=== PATIENT | female | born 1990 | race Two or more races ===

== ENCOUNTER 2020-10-07 10:47 | Inpatient (IN) | payer MEDICAID ==
[2020-10-07] MEDS ORDERED: MISOPROSTOL 0.2 MG TABLET ONE ×2 (11:15→16:35)
[2020-10-07] MEDS ORDERED: OXYTOCIN/0.9 % SODIUM CHLORIDE 30 UNIT/500 ML RTUINJ ONE (11:15)
[2020-10-07] MEDS ORDERED: LIDOCAINE 1% INJ-PF (10 MG/ML) 30 ML SDV ONE (11:15)
[2020-10-07] MEDS ORDERED: OXYTOCIN 10 UNIT/ML VIAL ONE (11:15)
[2020-10-07] MEDS ORDERED: PENICILLIN G-K 5 MILLION UNIT VIAL ONE (11:22)
--- NOTE | 2020-10-07 11:22 | Admission Physical ---
Datetime Report Generated by CPN: 10/07/2020 11:22 CURRENT ADMISSION Chief Complaint: Uterine Contractions Admit Impression : Term, Intrauterine ; Active Labor Admit Plan: Admit to Unit; Initiate Labor Protocol ALLERGIES Medication Allergies: No Medication Allergies: No Known Allergies (10/07/2020) Latex: No Latex Allergies OBSTETRICAL HISTORY EDC: 10/17/2020 00:00 : 5 Para: 3 Term: 3 : 0 SAB: 1 IAB: 0 Livin Cesareans: 0 VBACs: 0 PHYSICAL EXAM General: Normal HEENT: Normal Neurologic: Normal Thyroid: Normal Heart: Normal Lungs: Normal Breast: Normal Back: Normal Abdomen: Normal Genitourinary Exam: Normal Extremities: Normal DTRs: Normal Pelvic Type: Adequate Vital Signs: Reviewed VAGINAL EXAM Dilatation: 8-9 Effacement: 100 Station: -2 MEMBRANES Membranes: Bulging FETUS A EGA: 38.4 Monitoring: External US FHR- Baseline: 140 Variability: Moderate 6-25bpm Accelerations: 15X15 Decelerations: None FHR Category: Category I Admit Comment: presents c/o increasing contractions.38 wks, PNC at [facility] in [place]. No records available at admission. GBS unknown. VE stretchy 8-9/100/-2, vtx on Leapolds. Dr Wilson notified of pts status. Will admit in active labor. Will give PCN prophylactaly since GBS is unknown. records requested INFORMED CONSENT Assignment: Ruth Wilson MD Signature: with User ID: [email or web address] : with User ID: [email or web address]
[2020-10-07] MEDS ORDERED: PENICILLIN G POTASSIUM 5,000,000 UNIT in DEXTROSE 5%-WATER 100 ML IV ONE (11:27)
[2020-10-07] MEDS ORDERED: RINGERS SOLUTION,LACTATED 1,000 ML IV ONE (11:27)
[2020-10-07] MEDS ORDERED: RINGERS SOLUTION,LACTATED 500 ML IV ONE (11:27)
[2020-10-07 11:31] LABS: APPEARANCE,URINE CLEAR; BILIRUBIN,URINE NEGATIVE (NEGATIVE); COLOR,URINE STRAW; GLUCOSE, URINE NEGATIVE (NEGATIVE); KETONES,URINE NEGATIVE (NEGATIVE); LEUKOCYTE ESTERASE,URINE SMALL (NEGATIVE); NITRITE,URINE NEGATIVE (NEGATIVE); PROTEIN,URINE NEGATIVE (NEGATIVE); UROBILINOGEN,URINE NEGATIVE mg/dL (<2.0)
[2020-10-07] MEDS ORDERED: DIPHENHYDRAMINE HCL 25 MG CAPSULE PO PRN (11:44)
[2020-10-07] MEDS ORDERED: ACETAMINOPHEN 650 MG SUPP.RECT PR PRN (11:44)
[2020-10-07] MEDS ORDERED: VARICELLA VACC/PF (1350 UNIT/0.5 ML) 0.5 ML VIAL SUBCUT PRN (11:44)
[2020-10-07] MEDS ORDERED: ACETAMINOPHEN 325 MG TABLET PO PRN (11:44)
[2020-10-07] MEDS ORDERED: PSEUDOEPHEDRINE HCL 30 MG TABLET PO PRN (11:44)
[2020-10-07] MEDS ORDERED: OXYTOCIN/0.9 % SODIUM CHLORIDE 30 UNIT/500 ML RTUINJ IV PRN (11:44)
[2020-10-07] MEDS ORDERED: ZOLPIDEM TARTRATE 5 MG TABLET PO PRN (11:44)
[2020-10-07] MEDS ORDERED: FAMOTIDINE 20 MG TABLET PO PRN (11:44)
[2020-10-07] MEDS ORDERED: MEASLES,MUMPS&RUBELLA VACC/PF 0.5 ML VIAL SUBCUT PRN (11:44)
[2020-10-07] MEDS ORDERED: MAG HYDROX/AL HYDROX/SIMETH SUSP 30 ML UDCUP PO PRN (11:44)
[2020-10-07] MEDS ORDERED: ACETAMINOPHEN WITH CODEINE #3 TABLET PO PRN ×2 (11:44)
[2020-10-07] MEDS ORDERED: BENZOCAINE/MENTHOL AEROSOL SPRAY 56 ML TOP PRN (11:44)
[2020-10-07] MEDS ORDERED: MAGNESIUM HYDROXIDE SUSP 30 ML UDCUP PO PRN (11:44)
[2020-10-07] MEDS ORDERED: GLYCERIN/WITCH HAZEL LEAF 1 EACH MED..WIPE TP PRN (11:44)
[2020-10-07] MEDS ORDERED: DIBUCAINE 1% OINTMENT 28 GM TP PRN (11:44)
[2020-10-07] MEDS ORDERED: DIPH/PERTUSS(ACELL)/TETANUS VAC/PF 0.5 ML SYR (>=10YO) IM PRN (11:44)
[2020-10-07 11:52] LABS: URINE AMPHETAMINES SCREEN NEGATIVE; URINE BARBITURATES SCREEN NEGATIVE; URINE BENZODIAZEPINES SCREEN NEGATIVE; URINE COCAINE SCREEN NEGATIVE; URINE MARIJUANA (THC) SCREEN NEGATIVE; URINE METHADONE SCREEN NEGATIVE; URINE PHENCYCLIDINE SCREEN NEGATIVE
[2020-10-07 12:32] LABS: ABSOLUTE LYMPHOCYTES (AUTO) 1.7 10^3/uL (0.5-4.7); ABSOLUTE MONOCYTES (AUTO) 0.6 10^3/uL (0.1-1.4); ABSOLUTE NEUT (AUTO) 9.3 10^3/uL (1.7-8.2); BASOPHILS % (AUTO) 0.3 % (0-2); EOSINOPHILS % (AUTO) 0.4 % (0-6); HEMATOCRIT 34.1 % (36.0-47.0); HEMOGLOBIN 11.4 g/dL (12.0-15.5); LYMPHOCYTES % (AUTO) 14.4 % (13-45); MEAN CORPUSCULAR HEMOGLOBIN 28.4 pg (27.0-33.4); MEAN CORPUSCULAR HGB CONC 33.5 g/dL (32.0-36.0); MEAN CORPUSCULAR VOLUME 85 fl (80-97); MONOCYTES % (AUTO) 4.9 % (3-13); PLATELET COUNT 269 10^3/uL (150-450); RED BLOOD COUNT 4.02 10^6/uL (3.72-5.28); RED CELL DISTRIBUTION WIDTH 14.8 % (11.5-14.0); TOTAL CELLS COUNTED % (AUTO) 100 %; WHITE BLOOD COUNT 11.6 10^3/uL (4.0-10.5)
[2020-10-07 13:30] LABS: CHLAM PCR NOT DETECTED (NOT DETECT)
--- NOTE | 2020-10-07 13:54 | Birth Certificate Data ---
Cert Data Datetime Report Generated by CPN: 10/07/2020 13:54 CERTIFICATE DATA 47a. Care: No (10/07/2020 10:52:Willow Pascual RN) 47d. Number of Visits: Unknown (10/07/2020 10:52:Willow Pascual RN) 48a. Number of Prev Live Births: 3 (10/07/2020 10:52:Willow Pascual RN) 48b. Now Livin (10/07/2020 10:52:Willow Pascual RN) 48c. Live Births Now : 0 (10/07/2020 10:52: system process) 48e. Losses: 1 (10/07/2020 10:52:Willow Pascual RN) 48f. Date of Last Preg Loss: 09/22/2019 00:00 (10/07/2020 10:52:Willow Pascual RN) RISK FACTORS IN THIS 49a. Diabetes: No (10/07/2020 10:52:Willow Pascual RN) 49b. Hypertension: No (10/07/2020 10:52:Willow Pascual RN) 49c. Previous Births: 0 (10/07/2020 10:52:Willow Pascual RN) 49d. Stillborns: No (10/07/2020 10:52:Willow Pascual RN) 49d. IUGR: No (10/07/2020 10:52:Willow Pascual RN) 49e. Infertility Treatment: No (10/07/2020 10:52:Willow Pascual RN) 49f. Previous Cesareans: 0 (10/07/2020 10:52:Carmelita Crespo RN) Mother's Height 50b. Height Inches: 62 (10/07/2020 12:02:QS system process) Mother's Weight 51a. Pre- Weight (lbs): 212 (10/07/2020 10:52:Willow aPscual RN) 51b. Weight at Delivery (lbs): 255 (10/07/2020 12:02:QS system process) Infections Present/Treated 53a. Gonorrhea: No (10/07/2020 10:52:Willow Pascual RN) 53b. Syphilis: No (10/07/2020 10:52:Willow Pascual RN) 53c. Chlamydia: No (10/07/2020 10:52:Willow Pascual RN) 53d. Hepatitis B: No (10/07/2020 10:52:Willow Pascual RN) Results this Hospital Visit: Negative (10/07/2020 10:52:Willow Pascual RN) 53j. Test Result: Negative (10/07/2020 10:52:Willow Pascual RN) Obstetric Procedures 54a, b, c. Obstetric Procedures: Ultrasound (10/07/2020 10:52:[facility] MARCELINO Pascual) Cigarette Smoking Cigarette Smoking: Never Smoker. [id number] (10/07/2020 10:52:[facility] MARCELINO Pascual) 55a. 3 Months Before Preg - Ci (10/07/2020 10:52:[facility] MARCELINO Pascual) 55b. 1st Trimester of Preg- Ci (10/07/2020 10:52:[facility] MARCELINO Pascual) 55c. 2nd Trimester of Preg- Ci (10/07/2020 10:52:[facility] MARCELINO Pascual) 55d. 3rd Trimester of Preg- Ci [facility] Onset of Labor 56a. PROM >12 Hrs: 0.03 (10/07/2020 10:52:QS system process) 56b. Precipitous Labor <3 Hrs: 4 (10/07/2020 10:52:QS system process) 56c. Prolonged Labor > 20 Hrs: 4 (10/07/2020 10:52:QS system process) 57a. Induction of Labor: N/A (10/07/2020 10:52:Willow Pascual RN) 57c. Non-Vertex Presentation A: Vertex (10/07/2020 10:52:Willow Pascual RN) 57d. Steroids - Lung Mat: None (10/07/2020 10:52:Willow Pascual RN) 57d. Steroids - Lung Mat: Not Applicable (10/07/2020 10:52:Willow Pascual RN) 57e. Antibiotics During Labor: 10/07/2020 11:28 (10/07/2020 10:52:Willow Pascual RN) 57f. Mat Ch[place] or Temp >100.4: 97.8 (10/07/2020 10:52:Willow Pascual RN) 57g. Moderate/Heavy Meconium: Light Meconium (10/07/2020 11:41:Willow Pascual RN) 57i. Epidural/Spinal Anesthesia: None (10/07/2020 10:52:Willow Pascual RN) Method of Delivery 58a. Forceps - Unsuccessful A: N/A (10/07/2020 10:52:[facility] ) 58b. Vacuum - Unsuccessful A: N/A (10/07/2020 10:52:[facility]) 58c. Presentation at 58c. Presentation at - A : Vertex (10/07/2020 10:52:[facility]) 58c. Presentation at - A : N/A ([facility]07[facility]2020 [facility] 58c. Presentation at - A : Cephalic (10/07/2020 10:52:[facility]) Final Route and Method of Del 58d. Baby A Route/Delivery: Vaginal (10/07/2020 10:52:Willow MARCELINO Pascual) 58e. Trial of Labor Attempted: No (10/07/2020 10:52:Willow MARCELINO Pascual) 58e. Trial of Labor Attempted A: N/A (10/07/2020 10:52:Willow Pascual RN) 58e. Trial of Labor Attempted B: N/A (10/07/2020 10:52:Willow Pascual RN) Maternal Morbidity 59b. 3rd or 4th Degree Lacs: None (10/07/2020 10:52:Willow Pascual RN) Birthweight Baby A: 3450 (10/07/2020 10:52:Adriana Kurtz RN) 60a. Pounds : 7 (10/07/2020 10:52:QS system process) 60b. Ounces: 10 (10/07/2020 10:52:QS system process) 61. GA at Delivery Baby A: 38.4 (10/07/2020 10:52:Willow MARCELINO Pascual) : Early Term- 37- 38.6 Weeks (10/07/2020 10:52:QS system process) 62a. 5 Minute Baby A: 10 (10/07/2020 10:52:QS system process)
--- NOTE | 2020-10-07 13:54 | Delivery Summary ---
Del Sum A-C Datetime Report Generated by CPN: 10/07/2020 13:54 DELIVERY PERSONNEL DELIVERY PERSONNEL: [id number] Nurse Latin Dance Instructor Certified:: Gabrielle Nunez CNM Labor and Delivery Nurse:: Willow Pascual RNnurse's aides teacher Nurse:: Alice Hoang RN Nursery Nurse:: Kira Chawla RN Nursery Nurse:: Carmelita Crespo RN Chain Carrier/FITTING ROOM OPERATOR: Tenisha Johnson, NATIONAL SERVICE OFFICER Chain Carrier/FITTING ROOM OPERATOR: Samreen Mccrary, NATIONAL SERVICE OFFICER MATERNAL INFORMATION Delivery Anesthesia: Epidural Medications After Delivery: Pitocin 30 Units in 500ml NS/D5W Delivery QBL: 100 Maternal Complications: Precipitous Labor (<3hrs) Provider Comments: SROM w/ meconium stained fluid. VE C/+2, Precipitous delivery. Delivered JASBIR, VMI, vigorous and crying. Placed on pts abdoman. PCN x 1 dose 90% infused at time of delivery. Placenta S/C/I, meconium staining noted. Will send to pathology. Perineum intact. FF w/ minimal bleeding. QBL 100 ml. Apgars 9,10. Attending MD is Dr Wilson. GBS and GC/ chlamydia swab obtained prior to delivery LABOR SUMMARY EDC: 10/17/2020 00:00 No. Babies in Womb: 1 Attempted: No Labor Anesthesia: None LABOR INFORMATION Reason for Induction: Not Applicable Onset of Labor: 10/07/2020 07:30 Complete Dilatation: 10/07/2020 11:42 Oxytocin: N/A Group B Beta Strep: Unknown Antibiotics # of Doses: 1 Antibiotics Time of Last Dose: 10/07/2020 11:28 Name of Antibiotic Given: Penicillin G Steroids Given: None Reason Steroids Not Administered: Not Applicable MEMBRANES Membranes Rupture Method: Spontaneous Rupture of Membranes: 10/07/2020 11:41 Length of Rupture (hr): 0.03 Amniotic Fluid Color: Light Meconium Amniotic Fluid Amount: Moderate Amniotic Fluid Odor: Normal STAGES OF LABOR Stage 1 hr: 4 Stage 1 min: 12 Stage 2 hr: 0 Stage 2 min: 1 Stage 3 hr: 0 Stage 3 min: 4 Total Time in Labor hr: 4 Total Time in Labor min: 17 VAGINAL DELIVERY Episiotomy: None Laceration #1: None Laceration Extension #1: N/A Laceration Repair: Not Applicable Sponge Count Correct: Yes Sharps Count Correct: N/A BABY A INFORMATION Delivery Date/Time: 10/07/2020 11:43 Method of Delivery: Vaginal Nurse Controlled Delivery: No Born in Route : No : N/A Forceps: N/A Vacuum Extraction: N/A Shoulder Dystocia : No PRESENTATION/POSITION BABY A Presentation: Cephalic Cephalic Presentation: Vertex Vertex Position: Left Occipital Anterior Breech Presentation: N/A PLACENTA INFORMATION BABY A Placenta Delivery Time : 10/07/2020 11:47 Placenta Method of Delivery: Spontaneous Placenta Status: Delivered SCORES BABY A Heart Rate 1 min: >100 bpm Resp Effort 1 min: Good Cry Reflex Irritability 1 min: Cough or Sneeze or Pulls Away Muscle Tone 1 min: Active Motion Color 1 min: Body Barnes, Extremities Blue Resuscitation Effort 1 min: Tactile Stimulation SCORE 1 MIN: 9 Heart Rate 5 min: >100 bpm Resp Effort 5 min: Good Cry Reflex Irritability 5 min: Cough or Sneeze or Pulls Away Muscle Tone 5 min: Active Motion Color 5 min: Completely Barnes Resuscitation Effort 5 min: Tactile Stimulation SCORE 5 MIN: 10 INFORMATION BABY A Gestational Age at Delivery: 38.4 Gestational Status: Early Term- 37- 38.6 Weeks Outcome : Liveborn Infant Condition : Stable Infant Sex: Male IDENTIFICATION BABY A Verification Date/Time: 10/07/2020 11:53 ID Band Number: [id number] Mother's Name Verified: Yes Infant RN Verifying : MARCELINO Swartz Additional Verifying Personnel: Maryann Hoang, RN WEIGHT/LENGTH BABY A Birthweight (gm): 3450 Weight (lb): 7 Infant Weight (oz): 10 Infant Length (in): 19.00 Infant Length (cm): 48.26 CORD INFORMATION BABY A No. Cord Vessels: 3 Nuchal Cord : N/A Cord Blood Taken: Yes-For Storage (Mom's Blood type +) Infant Suction: Mouth ASSESSMENT BABY A Complications: Meconium Physical Findings at Delivery: Within Normal Limits Infant Respirations: Appears Normal Skin to Skin: Yes Skin to Skin Time (min): 60 Preparation Center Coordinator/ALS Called : No BABY B INFORMATION : N/A SIGNATURES Assignment: Ruth Wilson MD Signature: with User ID: [email or web address] : with User ID: [email or web address]
[2020-10-07] MEDS: IBUPROFEN 800 MG TABLET PO SCH ×2 (14:45→23:30)
[2020-10-07] MEDS ORDERED: PENICILLIN G POTASSIUM 2,500,000 UNIT in DEXTROSE 5%-WATER 50 ML IV SCH (15:30)
[2020-10-07] MEDS ORDERED: MISOPROSTOL 0.2 MG TABLET PR ONE (16:46)
[2020-10-07] MEDS ORDERED: MISOPROSTOL 0.1 MG TABLET PR ONE (17:15)
[2020-10-07] MEDS: FERROUS SULFATE 325 MG TABLET PO SCH (18:01)
[2020-10-07] MEDS: DOCUSATE SODIUM 100 MG CAPSULE PO SCH (18:01)
[2020-10-08] MEDS: IBUPROFEN 800 MG TABLET PO SCH ×3 (06:36→22:31)
[2020-10-08 06:37] LABS: HEPATITIS C VIRUS AB <0.1 s/co ratio (0.0-0.9)
[2020-10-08 07:13] LABS: HEMATOCRIT 28.9 % (36.0-47.0); HEMOGLOBIN 9.9 g/dL (12.0-15.5); MEAN CORPUSCULAR HEMOGLOBIN 28.9 pg (27.0-33.4); MEAN CORPUSCULAR HGB CONC 34.4 g/dL (32.0-36.0); MEAN CORPUSCULAR VOLUME 84 fl (80-97); PLATELET COUNT 220 10^3/uL (150-450); RED BLOOD COUNT 3.43 10^6/uL (3.72-5.28); RED CELL DISTRIBUTION WIDTH 14.7 % (11.5-14.0); WHITE BLOOD COUNT 11.2 10^3/uL (4.0-10.5)
[2020-10-08 07:55] LABS: HEPATITS B SURFACE ANTIGEN Negative (Negative)
--- NOTE | 2020-10-08 09:47 | PDOC PROGRESS REPORT ---
Subjective-OB Progress Note for:: 10/08/20 Subjective: Doing well, no c/o, eating, ambulating, breast and bottle Physical Exam (OB) Vital Signs: Temp Pulse Resp BP Pulse Ox 97.7 F 64 16 100/52 L 100 10/08/20 08:09 10/08/20 08:09 10/08/20 08:09 10/08/20 08:09 10/08/20 08:09 Intake & Output 10/07/20 10/08/20 10/09/20 06:59 06:59 06:59 Intake Total 240 Balance 240 Weight 115.9 kg - PIH/Pre-Eclampsia DTR's: 1 + Clonus: Negative Headache: Absent Epigastric Pain: No Visual Changes: No - Maternal Morbidity 59. Maternal Morbidity (serious complications experinced by the mother associated with labor and delivery: None of the above - Lochia Lochia Amount: Small 10-25 ml Lochia Color: Rubra/Red - Abdomen Description: Soft, Round Hernia Present: No Fundal Description: Firm, Midline Fundal Height: u/u - u/2 Objective-Diagnostic Laboratory: 10/08/20 06:33 10/07/20 10/07/20 10/07/20 10:58 12:17 12:17 WBC 11.6 H RBC 4.02 Hgb 11.4 L Hct 34.1 L MCV 85 MCH 28.4 MCHC 33.5 RDW 14.8 H Plt Count 269 Seg Neutrophils % 80.0 H Urine Color STRAW Urine Appearance CLEAR Urine pH 7.0 Ur Specific [place] 1.010 Urine Protein NEGATIVE Urine Glucose (UA) NEGATIVE Urine Ketones NEGATIVE Urine Blood MODERATE H Urine Nitrite NEGATIVE Ur Leukocyte Esterase SMALL H Blood Type A POSITIVE Antibody Screen NEGATIVE 10/08/20 06:33 WBC 11.2 H RBC 3.43 L Hgb 9.9 L Hct 28.9 L MCV 84 MCH 28.9 MCHC 34.4 RDW 14.7 H Plt Count 220 Seg Neutrophils % Urine Color Urine Appearance Urine pH Ur Specific [place] Urine Protein Urine Glucose (UA) Urine Ketones Urine Blood Urine Nitrite Ur Leukocyte Esterase Blood Type Antibody Screen 10/07/20 11:30 Vaginal/Anorectal Group B Streptococcus Culture - Final GROUP B BETA HEMOLYTIC STREPTOCOCCUS RECOVERED Assessment and Plan(PN) - Assessment and Plan (1) Anemia Qualifiers: Other causes of anemia: acute posthemorrhagic Is this a current diagnosis for this admission?: Yes (2) Meconium in amniotic fluid Is this a current diagnosis for this admission?: Yes (4) care insufficient Qualifiers: Trimester: unspecified trimester Qualified Code(s): O09.30 - Supervision of with insufficient care, unspecified trimester Is this a current diagnosis for this admission?: Yes (5) Active labor at term Is this a current diagnosis for this admission?: Yes - Time Spent with Patient Time with patient: Less than 15 minutes Medications reviewed and adjusted accordingly: Yes - Disposition Anticipated Discharge Disposition: Home, Self Care Anticipated Discharge Timeframe: within 24 hours
[2020-10-08] MEDS: FERROUS SULFATE 325 MG TABLET PO SCH ×2 (11:13→18:17)
[2020-10-08] MEDS: DOCUSATE SODIUM 100 MG CAPSULE PO SCH ×2 (11:13→18:17)
[2020-10-08] MEDS: PRENATAL VITAMIN W DHA CAPSULE PO SCH (11:14)
[2020-10-08] MEDS: SENNOSIDES/DOCUSATE 8.6-50 MG 1 EACH TABLET PO SCH (11:14)
[2020-10-09] MEDS: IBUPROFEN 800 MG TABLET PO SCH (05:02)
[2020-10-09 08:11] VITALS: BP 120/66
[2020-10-09] MEDS: DOCUSATE SODIUM 100 MG CAPSULE PO SCH (09:08)
[2020-10-09] MEDS: SENNOSIDES/DOCUSATE 8.6-50 MG 1 EACH TABLET PO SCH (09:08)
[2020-10-09] MEDS: PRENATAL VITAMIN W DHA CAPSULE PO SCH (09:08)
[2020-10-09] MEDS: FERROUS SULFATE 325 MG TABLET PO SCH (09:08)
--- NOTE | 2020-10-09 11:21 | PDOC DISCHARGE SUMMARY ---
Impression - Admit/DC Date/PCP Admission Date/Primary Care Provider: 10/07/20 11:27 DAKOTA SIMON MD Discharge Date: 10/09/20 - Discharge Diagnosis (1) Active labor at term Is this a current diagnosis for this admission?: Yes (2) Anemia Is this a current diagnosis for this admission?: Yes (3) Meconium in amniotic fluid Is this a current diagnosis for this admission?: Yes (4) care insufficient Is this a current diagnosis for this admission?: Yes (5) Vaginal delivery Is this a current diagnosis for this admission?: Yes - Additional Information Resuscitation Status: Full Code Discharge Diet: Regular Discharge Activity: Activity As Tolerated, Pelvic Rest, No tub bath Referrals: [facility] [Provider Group] (Please call and schedule a 1 week f/u at [facility].) Prescriptions: Ibuprofen [Motrin 800 mg Tablet] 800 mg PO Q8HP PRN #60 tablet PRN Reason: Home Medications: Prenat 115/Iron Fum/Folic/Dss [ 19 Tablet] 1 tab PO DAILY 08/07/15 Ibuprofen [Motrin 800 mg Tablet] 800 mg PO Q8HP PRN #60 tablet 10/09/20 HPI Gestational Age: 38.4 Reason(s) for Admission: Onset of Labor Procedures: NST Intrapartum Procedure(s): Spontaneous Vaginal Delivery Hospital Course 59. Maternal Morbidity (serious complications experinced by the mother associated with labor and delivery: None of the above Results Laboratory Results: WBC 11.2 10^3/uL (4.0-10.5) H 10/08/20 06:33 RBC 3.43 10^6/uL (3.72-5.28) L 10/08/20 06:33 Hgb 9.9 g/dL (12.0-15.5) L 10/08/20 06:33 Hct 28.9 % (36.0-47.0) L 10/08/20 06:33 MCV 84 fl (80-97) 10/08/20 06:33 MCH 28.9 pg (27.0-33.4) 10/08/20 06:33 MCHC 34.4 g/dL (32.0-36.0) 10/08/20 06:33 RDW 14.7 % (11.5-14.0) H 10/08/20 06:33 Plt Count 220 10^3/uL (150-450) 10/08/20 06:33 Lymph % (Auto) 14.4 % (13-45) 10/07/20 12:17 [place]oyah % (Auto) 4.9 % (3-13) 10/07/20 12:17 Eos % (Auto) 0.4 % (0-6) 10/07/20 12:17 Baso % (Auto) 0.3 % (0-2) 10/07/20 12:17 Absolute Neuts (auto) 9.3 10^3/uL (1.7-8.2) H 10/07/20 12:17 Absolute Lymphs (auto) 1.7 10^3/uL (0.5-4.7) 10/07/20 12:17 Absolute Monos (auto) 0.6 10^3/uL (0.1-1.4) 10/07/20 12:17 Absolute Eos (auto) 0.0 10^3/uL (0.0-0.6) 10/07/20 12:17 Absolute Basos (auto) 0.0 10^3/uL (0.0-0.2) 10/07/20 12:17 Seg Neutrophils % 80.0 % (42-78) H 10/07/20 12:17 Urine Color STRAW 10/07/20 10:58 Urine Appearance CLEAR 10/07/20 10:58 Urine pH 7.0 (5.0-9.0) 10/07/20 10:58 Ur Specific [place] 1.010 10/07/20 10:58 Urine Protein NEGATIVE mg/dL (NEGATIVE) 10/07/20 10:58 Urine Glucose (UA) NEGATIVE mg/dL (NEGATIVE) 10/07/20 10:58 Urine Ketones NEGATIVE mg/dL (NEGATIVE) 10/07/20 10:58 Urine Blood MODERATE (NEGATIVE) H 10/07/20 10:58 Urine Nitrite NEGATIVE (NEGATIVE) 10/07/20 10:58 Urine Bilirubin NEGATIVE (NEGATIVE) 10/07/20 10:58 Urine Urobilinogen NEGATIVE mg/dL (<2.0) 10/07/20 10:58 Ur Leukocyte Esterase SMALL (NEGATIVE) H 10/07/20 10:58 Urine Ascorbic Acid NEGATIVE (NEGATIVE) 10/07/20 10:58 Urine Opiates Screen NEGATIVE 10/07/20 10:58 Urine Methadone Screen NEGATIVE 10/07/20 10:58 Ur Barbiturates Screen NEGATIVE 10/07/20 10:58 Ur Phencyclidine Scrn NEGATIVE 10/07/20 10:58 Ur Amphetamines Screen NEGATIVE 10/07/20 10:58 U Benzodiazepines Scrn NEGATIVE 10/07/20 10:58 Urine Cocaine Screen NEGATIVE 10/07/20 10:58 U Marijuana (THC) Screen NEGATIVE 10/07/20 10:58 RPR NONREACTIVE (NONREACTIVE) 10/07/20 12:17 Chlamydia DNA (PCR) NOT DETECTED (NOT DETECT) 10/07/20 11:30 Hep Bs Antigen Negative (Negative) 10/07/20 12:17 Hepatitis C (CHERRI) <0.1 s/co ratio (0.0-0.9) 10/07/20 12:17 Hep C Verif Com 1 Comment (.) 10/07/20 12:17 HIV 1&2 Antibody NEGATIVE (NEGATIVE) 10/07/20 12:17 N.gonorrhoeae DNA (PCR) NOT DETECTED (NOT DETECT) 10/07/20 11:30 Rubella IgG Antibody 87.60 IU/mL 10/07/20 12:17 Rubella IgG Ab Interp POSITIVE 10/07/20 12:17 Blood Type A POSITIVE 10/07/20 12:17 Antibody Screen NEGATIVE 10/07/20 12:17 Plan Plan of Treatment: f/u at [facility] 4 wks Time Spent: Less than 30 Minutes
== END 2020-10-09 13:27 | disposition home or self-care (01) | DRG 807 ==
LOC: LC 10:47 → LR 11:27 → 2S 13:53
PROVIDERS: ADMIT Student in an Organized Health Care Education/Training Program; ATTEND Student in an Organized Health Care Education/Training Program
PROC: 10E0XZZ Delivery of Products of Conception, External Approach (ICD-10-PCS; principal; 2020-10-07)
DX: O62.3 Precipitate labor (principal); Z37.0 Single live birth; O77.0 Labor and delivery complicated by meconium in amniotic fluid; Z3A.38 38 weeks gestation of pregnancy; O99.02 Anemia complicating childbirth; D64.9 Anemia, unspecified
CPT/HCPCS: 36415; 80307; 81005; 85025; 85027; 86592; 86701; 86762; 86803; 86804; 86850; 86900; 86901; 87077; 87081; 87340; 87491; 87591; 88307; J2540; J2590; J3490; J7060